=== PATIENT | female | born 1950 | race Caucasian/White ===

== ENCOUNTER → 2017-09-11 14:24 | Outpatient (CLI) | payer MEDICARE, OTHER, SELFPAY ==
--- NOTE | 2017-09-11 14:27 | DI.RAD.S_ITS ---
PROCEDURE: XR WRIST RT MIN 3V INDICATIONS: 66 year-old female with right wrist fracture. TECHNIQUE: 4 views of the wrist were acquired. COMPARISON: None. FINDINGS: Bony detail is obscured by overlying cast material. Bones: There is mildly displaced distal radial metaphyseal fracture, extending into the distal radioulnar joint. 3 percutaneous fixation pins are intact and in expected positions. Carpal bones appear normally aligned. Distal ulna appears intact. Scaphoid view: Scaphoid appears intact. Soft tissues: No suspicious soft tissue calcifications. IMPRESSION: Mildly displaced intra-articular distal radial metaphyseal fracture, with 3 percutaneous fixation pins in expected positions. Dictated by: Ridge Sena M.D. on 09/11/2017 at 15:02 Approved by: Ridge Sena M.D. on 09/11/2017 at 15:04
== END ==
PROVIDERS: Family Provider Orthopaedic Surgery; PCP Physician Assistant; Visit Provider Physician Assistant
DX: S52.571D Other intraarticular fracture of lower end of right radius, subsequent encounter for closed fracture with routine healing (principal)
CPT/HCPCS: 73110

== ENCOUNTER → 2019-08-30 08:42 | Outpatient (CLI) | payer MEDICARE, OTHER, SELFPAY ==
[2019-08-30 10:40] LABS: Alanine Aminotransferase 16 IU/L (<35); Albumin 4.6 g/dL (3.5-5.0); Albumin Globulin Ratio 1.5 (1.0-2.8); Alkaline Phosphatase 71 U/L (38-126); Aspartate Aminotransferase 25 IU/L (14-36); BUN Creatinine Ratio 31.8 (6-22); Bilirubin Total 1.6 mg/dL (0.2-1.3); Blood Urea Nitrogen 21 mg/dL (7-17); Calcium 9.7 mg/dL (8.4-10.2); Carbon Dioxide 27 mmol/L (22-32); Chloride 103 mmol/L (98-107); Cholesterol 208 mg/dL (140-199); Estimated Glomerular Filt Rate > 60.0 mL/min (>60); Globulin 3.1 g/dL (1.7-4.1); Glucose 112 mg/dL (80-110); HDL Cholesterol 74 mg/dL (40-60); HEMOLYSIS < 15 (0-50); LDL Cholesterol Calculated 115 mg/dL (<100); Potassium 4.3 mmol/L (3.4-5.1); Sodium 139 mmol/L (137-145); Total Protein 7.7 g/dL (6.3-8.2); Triglycerides 93 mg/dL (35-150)
== END ==
PROVIDERS: Family Provider Orthopaedic Surgery; PCP Nurse Practitioner Family
DX: Z13.228 Encounter for screening for other metabolic disorders (principal); E78.5 Hyperlipidemia, unspecified
CPT/HCPCS: 36415; 80053; 80061

== ENCOUNTER → 2019-10-10 10:29 | Outpatient (CLI) | payer MEDICARE, OTHER, SELFPAY ==
[2019-10-10 12:04] LABS: Albumin 4.3 g/dL (3.5-5.0); BUN Creatinine Ratio 22.2 (6-22); Blood Urea Nitrogen 16 mg/dL (7-17); Calcium 9.8 mg/dL (8.4-10.2); Carbon Dioxide 28 mmol/L (22-32); Chloride 104 mmol/L (98-107); Estimated Glomerular Filt Rate > 60.0 mL/min (>60); Glucose 126 mg/dL (80-110); HEMOLYSIS < 15 (0-50); Phosphorous 3.6 mg/dL (2.8-4.1); Potassium 4.5 mmol/L (3.4-5.1); Sodium 137 mmol/L (137-145)
== END ==
PROVIDERS: Family Provider Orthopaedic Surgery; PCP Nurse Practitioner Family
DX: R94.5 Abnormal results of liver function studies (principal)
CPT/HCPCS: 36415; 80069

== ENCOUNTER → 2020-05-14 16:55 | Outpatient (CLI) | payer MEDICARE, OTHER, SELFPAY ==
[2020-05-14 19:05] LABS: Appearance Urine UA CLOUDY; Bilirubin Urine UA NEGATIVE (NEGATIVE); Glucose Urine UA TRACE g/dL (Negative); Ketones Urine UA NEGATIVE (NEGATIVE); Leukocyte Esterase Urine UA 2+ (NEGATIVE); Nitrite Urine UA POSITIVE (Negative); Occult Blood Urine UA 3+ (Negative); Protein Urine UA 3+ (Negative)
[2020-05-14 19:08] LABS: Amorphous Sediment Urine 1+; Bacteria Urine Many (>30); Color Urine UA Dark Yellow; Culture Indicated Urine Specimen Cultured; Mucus Urine 2+ (Negative); RBC Urine 1-5/HPF (0-5/HPF); Squamous Epithelial Cell Urine 0-1 /HPF (0-5/HPF); WBC Urine >100/HPF (0-5/HPF)
== END ==
PROVIDERS: Family Provider Orthopaedic Surgery; PCP Nurse Practitioner Family; Visit Provider Registered Nurse
DX: M54.9 Dorsalgia, unspecified (principal); R30.0 Dysuria
CPT/HCPCS: 81001; 87077; 87086; 87186

== ENCOUNTER → 2021-02-04 07:44 | Outpatient (CLI) | payer MEDICARE, OTHER, SELFPAY ==
[2021-02-04 08:17] LABS: Hematocrit 38.1 % (36-46); Hemoglobin 13.2 g/dL (12.0-16.0); Mean Corpuscular HGB Conc 34.6 % (30-36); Mean Corpuscular Hemoglobin 30.7 PG (26-34); Mean Corpuscular Volume 88.9 fL (80-100); Platelet Count 255 X10^3/uL (150-400); Red Blood Cell Count 4.29 X10^6/uL (4.0-5.2); Red Cell Distribution Width 12.6 % (11.6-14.8); White Blood Cell Count 5.7 X10^3/uL (4.5-11.0)
[2021-02-04 08:53] LABS: Alanine Aminotransferase 16 IU/L (<35); Albumin 4.3 g/dL (3.5-5.0); Albumin Globulin Ratio 1.5 (1.0-2.8); Alkaline Phosphatase 51 U/L (38-126); Aspartate Aminotransferase 23 IU/L (14-36); BUN Creatinine Ratio 20.7 (6-22); Bilirubin Total 0.8 mg/dL (0.2-1.3); Blood Urea Nitrogen 18 mg/dL (7-17); Calcium 9.7 mg/dL (8.4-10.2); Carbon Dioxide 30 mmol/L (22-32); Chloride 106 mmol/L (98-107); Cholesterol 225 mg/dL (140-199); Estimated Glomerular Filt Rate > 60.0 mL/min (>60); Globulin 2.9 g/dL (1.7-4.1); Glucose 107 mg/dL (80-110); HDL Cholesterol 74 mg/dL (40-60); HEMOLYSIS < 15 (0-50); LDL Cholesterol Calculated 133 mg/dL (<100); Potassium 4.1 mmol/L (3.4-5.1); Sodium 143 mmol/L (137-145); Total Protein 7.2 g/dL (6.3-8.2); Triglycerides 90 mg/dL (35-150)
[2021-02-04 09:05] LABS: Free T4, Direct Thyroxine 1.12 ng/dL (0.78-2.19)
[2021-02-04 09:18] LABS: Thyroid Stimulating Hormone 0.101 uIU/mL (0.47-4.68)
== END ==
PROVIDERS: Family Provider Orthopaedic Surgery; PCP Nurse Practitioner Family; Referring Provider Nurse Practitioner Family; Visit Provider Nurse Practitioner Family
DX: E78.2 Mixed hyperlipidemia (principal); Z00.00 Encounter for general adult medical examination without abnormal findings; E89.0 Postprocedural hypothyroidism; Z13.6 Encounter for screening for cardiovascular disorders
CPT/HCPCS: 36415; 80053; 80061; 84439; 84443; 85027

== ENCOUNTER → 2022-06-27 16:15 | Outpatient (CLI) | payer MEDICARE, SELFPAY ==
--- NOTE | 2022-06-27 16:18 | DI.MRI.S_ITS ---
BREAST MRI OF BOTH BREASTS: 06/27/2022 CLINICAL: New dx adenocarcinoma breast. TECHNIQUE: The patient was placed prone in a dedicated breast imaging coil. Precontrast axial STIR and 3D FLASH without fat saturation sequences were obtained. Both before and after bolus injection of contrast, sequential 1-minute axial 3D FLASH with fat saturation sequences for 3 time points, with subtraction images and maximum intensity projections (MIP's) generated. Delayed sagittal FLASH images with fat saturation were also obtained. 20 cc ProHance IV contrast was administered. Computer-aided detection, including computer algorithm analysis of MRI image data for lesion detection and characterization, pharmacokinetic analysis, with further physician review for interpretation, was performed. COMPARISON: [facility], MG, MG SCREENING BILATERAL DIGITAL BREAST TOMOSYNTHESIS, 05/04/2022, 14:31. [facility], MG, MG ADDITIONAL VIEWS DIGITAL BREAST TOMOSYNTHESIS LEFT, 05/27/2022, 14:29. [facility], US, US BREAST LIMITED LEFT, 05/27/2022, 14:51. [facility], MG, MG DIGITAL BREAST TOMOSYNTHESIS BREAST BIOPSY LEFT, 06/16/2022, 13:09. FINDINGS: Image quality: Excellent. There is mild background parenchymal enhancement. Right breast: There is a small skin tag in the upper outer right breast middle depth. Small amount of tubular branching T1 hyperintense material in the retroareolar position consistent with inspissated ductal debris. A 0.8 cm cyst is present in the 09:00 o'clock right breast middle depth. No suspicious enhancement or mass. Left breast: There is small round blooming artifact from a remote biopsy marker in the 05:00 o'clock breast middle depth. There is round blooming artifact from recent biopsy at a posterior depth at the 11 to 12 o'clock position. A 0.6 x 0.5 cm enhancing mass is present in the left to 12:00 o'clock position posterior depth. There is an adjacent peripherally enhancing tubular fluid collection consistent with a biopsy tract (see series 19, image 64). Kinetic analysis on the small mass demonstrates rapid initial enhancement and predominantly persistent delayed kinetics with 12% washout. Miscellaneous: There are a few nonenlarged left low axillary lymph nodes, all of which a fatty hilum is demonstrated. There is no bulky adenopathy on either side. No internal mammary chain adenopathy. Mild enhancing right middle lobe pulmonary parenchymal consolidation may correlate with atelectasis or airspace disease. The visible portions of the chest wall and heart are normal. A few cysts are noted in the liver. IMPRESSION: KNOWN BIOPSY PROVEN MALIGNANCY 1. 0.6 cm enhancing mass in the posterior left breast 12 o'clock position is biopsy-proven malignant. 2. There is adjacent enhancement of the biopsy tract. 3. No suspicious adenopathy or right breast abnormality. BIRADS six, known malignancy COMMENT: The imaging literature indicates that a negative contrast breast MRI examination has a high sensitivity and a moderate specificity for detecting and excluding invasive carcinomas to a detection threshold of 3-5 mm; nonetheless, appropriate clinical and mammographic follow-up are recommended. MRI is not sensitive for detecting DCIS (ductal carcinoma in situ) and may not detect large invasive neoplasms that show only minimal enhancement such as mucinous carcinoma. If there are suspicious calcifications or clinically worrisome palpable masses, then biopsy should still be considered. Invasive neoplasms can be hidden by co-existent and benign enhancement caused by mastitis, hormone therapy effects, radiation therapy, , and recent biopsy or surgery. False positive examinations can occur in a number of circumstances, including breasts that have recently been subject to invasive procedures and those that contain atypical ductal hyperplasia, hormonally stimulated glandular tissue, fat necrosis, or radial scars. This exam was interpreted at Station ID: [id number]. Electronically Signed By: Nel mckee/:06/28/2022 10:57:03 ACR BI-RADS Category 6: Known biopsy proven malignancy [id number]
== END ==
PROVIDERS: Family Provider Orthopaedic Surgery; PCP Nurse Practitioner; Referring Provider Nurse Practitioner; Visit Provider Nurse Practitioner
DX: C50.812 Malignant neoplasm of overlapping sites of left female breast (principal); N60.01 Solitary cyst of right breast
CPT/HCPCS: 77049; A9579

== ENCOUNTER → 2022-07-27 07:55 | Outpatient (CLI) | payer MEDICARE, SELFPAY ==
--- NOTE | 2022-07-27 | DI.MG.S_ITS ---
SPECIMEN: 07/27/2022 CLINICAL: Left specimen. Correlation is made to exams dated: 07/27/2022 localization, 06/27/2022 breast MRI - [facility], 06/16/2022 stereotactic biopsy, 05/27/2022 ultrasound, and 05/27/2022 mammogram - [facility]. The specimen contains the clip and the wire with the hook end. IMPRESSION: SPECIMEN The specimen contains the clip and the wire with the hook end. This exam was interpreted at Station ID: [id number]. Mau James M.D. lc/:07/27/2022 14:45:53
--- NOTE | 2022-07-27 07:57 | DI.NM.S_ITS ---
PROCEDURE: NM SENTINEL NODE INJECT ONLY RADIOPHARMACEUTICAL: 0.5-1.0 mCi Millipore filtered Tc-99m sulfur colloid. INDICATIONS: Left breast ca COMPARISON: None. PROCEDURE: The area around the nipple was prepped and draped in a sterile fashion. Tc-99m sulfur colloid was injected intra-dermally around the outer edge of the areola in the left breast. No image was obtained. IMPRESSION: Administration of radiotracer into the left breast periareolar region for intra-operative sentinel lymph node localization. Dictated by: Odilia Casiano M.D. on 07/27/2022 at 20:55 Approved by: Odilia Casiano M.D. on 07/27/2022 at 20:56
--- NOTE | 2022-07-27 09:54 | DI.MG.S_ITS ---
Patient Name: ARIANE JAVED date: 1950 Sex: F Attending Physician: Cristal Indications: Date: 07/28/2022 09:36 At the request of: GIRMA GALVEZ Procedure: MM needle loc LT MAMMOGRAPHY GUIDED NEEDLE LOCALIZATION LEFT BREAST WITH POST MAMMOGRAPHIC IMAGING AND RADIOGRAPHIC SPECIMEN IMAGIN07/27/2022 CLINICAL: Left needle loc. Correlation is made to exams dated: 06/27/2022 breast MRI - [facility], 06/16/2022 stereotactic biopsy, 05/27/2022 ultrasound, 05/27/2022 mammogram, 05/04/2022 mammogram, and 12/09/2020 mammogram - [facility]. A needle localization using mammography guidance was performed for the 0.6 cm mass located in the left breast at 11 o'clock posterior depth. The skin was prepped in the usual manner. Local anesthetic was administered to the access site. The localization was approached from the caudocranial aspect. A needle was inserted into the targeted area under mammography guidance. Post placement mammographic imaging demonstrates the tip 1.2cm posterior from the geometric center of the targeted area. IMPRESSION: NEEDLE LOCALIZATION Needle localization for the 0.6 cm mass in the left breast at 11 o'clock posterior depth was successful. The imaged specimen includes a biopsy clip. Waiting for pathology results. A final report will be issued when these become available. This exam was interpreted at Station ID: [id number]. Delta cobos/eliud:07/28/2022 09:36:57
== END ==
PROVIDERS: Family Provider Orthopaedic Surgery; PCP Nurse Practitioner; Referring Provider Surgery; Visit Provider Surgery
DX: C50.912 Malignant neoplasm of unspecified site of left female breast
CPT/HCPCS: 19281; 38792; 76098; A9541; G0279; C1819

== ENCOUNTER 2022-07-27 09:24 | Day surgery (SDC) | payer MEDICARE, SELFPAY ==
[2022-07-25 08:03] VITALS: BMI 24.3
[2022-07-27] VITALS (19 sets, daily range): BP systolic 120–151; BP diastolic 66–91; PULSE 59–89; RESP 11–20; TEMP 36.4–36.8; O2SAT 67–99; BMI 23.9
--- NOTE | 2022-07-27 | PATH_ITS ---
[facility] Accession Number: [id number] No. of containers..02 Tissue . 01 Material submitted: . PART A: breast - LEFT BREAST LESION (LONG LATERAL SHOUR SUPERIOR) PART B: lymph node - LEFT SENTINEL LYMPH NODES . 01 Diagnosis: A. Left Breast Lesion, Excision: Invasive (ductal) carcinoma, grade 2 of 3 (Du combined histologic grade, total score 6/9), with the following specific features: 1. Tumor size (invasive component): 6 mm, by microscopic measurement. 2. Nuclear pleomorphism: Intermediate (2/3). 3. Mitotic rate: Low. (1/3) 4. Tubular differentiation: Little or none. (3/3). 5. Ductal carcinoma in situ: small focus suspected. 6. Calcifications: Present in association with benign breast tissue and in stroma adjacent to invasive carcinoma. 7. Lymphatic invasion: Not identified. 8. Resection margins: - For invasive carcinoma: Negative. - 1.2 mm from anterior margin (block A12), and more than 2 mm from the remaining margins. - For possible DCIS: Negative (more than 2 mm from all margins). 9. Prognostic markers (performed on prior biopsy, outside case #[id number], collection date 06/16/2022, [facility]), with the following reported findings: - Estrogen receptor: Positive. - Progesterone receptor status: Positive. - HER-2 status: Negative for protein overexpression by immunohistochemistry (1+). 10. Regional lymph node status (see part B below): Three sentinel lymph nodes examined, negative for malignancy (0/3). 11. Additional findings: - Biopsy site changes and associated extensive fibrosis seen. - Few fragments of skeletal muscle seen, uninvolved by tumor. - Skin and nipple are not present for evaluation. 12. Pathologic stage: pT1b pN0(sn). . B. Left [place] Lymph Nodes, Dissection: 3 Lymph nodes, negative for malignancy (0/3). . COMMENT: The size of the carcinoma is estimated microscopically based on involvement of 2 slices (8 and 9) each measuring 3 mm in thickness. [facility] 08/04/2022 1856 Local . 01 Comment: Dr. Hutson reviewed block B1 and concurs with the interpretation. . 01 Electronically signed: Haresh King MD, Pathologist NPI- [id number] . 01 Gross description: . A. Received: In formalin in a [employer] transportation and compression container, labeled with the patient's name, , and left breast lesion. Specimen: A left partial mastectomy specimen. Weight: 33 grams. Measurement: 6.9 cm from superior to inferior, 1.5 cm from medial to lateral, and 6.0 cm from anterior to posterior. Skin Ellipse: Absent. Wire: Present, penetrating at the anterior superior side and exiting at the anterior inferior side. Margins: Oriented by the surgeon with a short suture designating superior and a long suture designating lateral, per the requisition. The specimen is inked as follows: Anterior yellow, posterior black, medial blue, lateral green, superior orange, and inferior red. Sliced: From superior to inferior into fourteen 3 mm slices. Lesion: Description: A firm, mendiola, ill-defined lesion. Size: 1.8 x 0.8 x 0.3 cm. Slices Involved: Slices 4 through 10. Biopsy Site: A coil biopsy clip is identified within slice 11. Distance to Margins: Grossly approaches the green margin, 0.3 cm from the blue margin, and greater than 0.5 cm from all remaining margins. Other: The remaining cut surfaces are yellow to white fibroadipose tissue with fibrous tissue occupying less than 10% of the cut surface with no additional lesions identified. Fixation time: The specimen was removed on 07/27/2022, time not provided; cold ischemic time cannot be calculated; and total fixation time is less than 72 hours. Family Engagement Specialist sections are submitted as follows: A1: Rep slice 1, orange margin perpendicular A2-A3: Entire composite slice 3, no lesion. A4: Rep slice 4 with lesion to nearest green margin and including yellow and blue margins. A5: Rep slice 5. A6: Rep slice 7. A7-A8: Entire composite slice 8. A9-A10: Entire composite slice 9. A11: Rep slice 10. A12: Rep slice 11 to include biopsy site. A13-A14: Entire composite slice 12, no lesion. A15: Rep slice 14, red margin perpendicular. . B. Received in formalin labeled with the patient's name, and left sentinel lymph nodes, and consists of a yellow lobulated soft tissue fragment measuring 3.0 x 2.2 x 1.3 cm. Palpation reveals three mendiola lymph node candidates ranging from 0.5 to 1.3 cm in greatest dimension. The lymph node candidates are submitted as follows: B1: Single serially sectioned lymph node candidate. B2: Single serially sectioned lymph node candidate. B3: Single intact lymph node candidate. . The specimen was removed on 07/27/2022, time not provided; cold ischemic time cannot be calculated; and total fixation time is less than 72 hours. ([id number]) /MRV 07/29/2022 1933 Local . 01 Microscopic: . p63 and smooth muscle myosin immunostains* are performed on blocks A7 and A12 in order to evaluate for DCIS and the atypical focus close to the anterior margin in A12, respectively. In A7, retention of markers is not seen, hence in this block DCIS is not present. In A12, there is loss of both markers, in support of invasive carcinoma close to anterior margin. Deeper levels are examined and this focus disappears. . * This test was developed and its performance characteristics determined by [facility]. It has not been cleared or approved by the U.S. Food and Drug Administration. The FDA has determined that such clearance or approval is not necessary. This test is used for clinical purposes. It should not be regarded as investigational or for research. . 01 Pathologist provided ICD-10: C50.112 . 01 CPT . 294462, 347857, X94964, G19154 Specimen Comment: A courtesy copy of this report has been sent to [phone] Performed at: 01 [facility] [address] [place] [address], [place], [place] [id number] MD Herminio Fitzgerald MD Phone: [phone]
[2022-07-27] MEDS: LACTATED RINGERS 1,000 ML 100 ML IV (11:30)
--- NOTE | 2022-07-27 12:45 | PM.PREOP ---
Pre-operative Note Interval Note History & Physical reviewed/Exam performed by Physician: Yes Changes to H&P: No
[2022-07-27] MEDS: CEFAZOLIN 2 GM/100 ML PREMIX 100 ML IV (13:21)
[2022-07-27] MEDS: METHYLENE BLUE 50 MG/10 ML VIAL INJ (13:45)
[2022-07-27] MEDS: BUPIVACAINE 0.25% (PF) VIAL 30 ML INJ (14:48)
[2022-07-27] MEDS: hydrOXYzine pamoate 25 MG CAPSULE PO (15:12)
--- NOTE | 2022-07-27 15:16 | PM.OP.1 ---
Operative Date/Time/Diagnoses Date of procedure: 07/27/22 Time of procedure: 15:16 Pre-op diagnosis: Left breast cancer Post-op diagnosis: same Procedure & Clinicians Procedure: Left lumpectomy with sentinel lymph node biopsy Same procedure as scheduled: Yes Indications: 71-year-old woman with a <1 cm left breast ductal carcinoma HR+ HER2- here for needle-guided lumpectomy with sentinel lymph node biopsy Surgeon: Tato Bee Anesthesia Type: General Operative Notes Findings: wire and clip with the specimen. 2+ sentinel lymph nodes. Specimen(s): other (Left lumpectomy, left sentinel lymph nodes) Estimated Blood Loss (mL): 30 Procedure in detail: The patient underwent needle localized prior to the operation. They were brought to the operating room and placed supine on the table. Bilateral lower extremity compression devices were applied. They were intubated with an LMA. 1 ml of methlyene blue mixed w 4 ml saline was injected into the dermal space around the areola and massaged into the tissue for 5 minutes. They were prepped and draped in sterile fashion. Time-out was performed. A curvilinear incision on the superior aspect of the left breast was made and subcutaneous tissues were divided. The localizing wire was identified and then brought back within the incision. The end of the wire was within a posterior depth breast mass. The mass was excised with the wire and the clip. Specimen was marked short stitch superior long stitch lateral. Imaging demonstrated that the specimen contained the wire and the associated clip. A metalic clip was placed on the posterior wall of the cavity which is essentially the chest wall. Subcutaneous tissues were reapproximated with 3 0 Vicryl sutures skin closed with Monocryl followed by application of Dermabond. The counts were correct. They emerged from anesthesia and were transfered to recovery in stable condition. An incision was made in the left axilla 2 cm below the hair bearing region. Dissection was carried down through the subcutaneous tissue towards the chest wall guided by the Neoprobe. A small cluster of lymph nodes were identified by their activity, but they were not blue in appearance. The nodes were removed the tissue was ligated with hemoclips. The background count following removal of the node was minimal there were no other blue appearing nodes or lymphadenopathy. Hemostasis was achieved. The subcutaneous tissue was closed with vicryl the skin with 4-o monocryl followed by dermabond. Complications: none Post-operative Condition: stable Disposition: same day surgery
[2022-07-27] MEDS: HYDROMORPHONE 2 MG INJ IV ×7 (15:18→15:52)
[2022-07-27] MEDS: ACETAMINOPHEN 325 MG TABLET 650 MG PO (15:30)
[2022-07-27] MEDS: OXYCODONE IR 5 MG TABLET PO ×2 (15:30→15:55)
--- NOTE | 2022-07-27 15:32 | SUR.PREOP ---
Have administered 1.5mg IV Dilaudid, given 5mg PO Oxycodone, 650mg Tylenol for pain that feels it is stabbing me. Pt is crying. Calm but in much pain. Ice pack in place. Will continue to treat pain and monitor vital signs
--- NOTE | 2022-07-27 15:55 | SUR.PHASEI ---
Pt states her pain is not better at all. Rating pain as 8/10. HR 66. Appears calm. Will adminsiter the remaining .5mg IV Dilaudid and reassess
--- NOTE | 2022-07-27 16:38 | SUR.PHASEII ---
Pt in Phase II, sats dropping to 74% when falling asleep. ([id number]). Sats rturn to 98% when verbally stimulated to take deep breaths.
--- NOTE | 2022-07-27 17:26 | SUR.PHASEII ---
Report given to Ragini.
== END 2022-07-27 19:35 | disposition home or self-care (01) ==
PROVIDERS: Family Provider Orthopaedic Surgery; PCP Nurse Practitioner; Referring Provider Surgery; Visit Provider Surgery
PROC: (CPT 19301; principal; 2022-07-27 12:15)
DX: C50.112 Malignant neoplasm of central portion of left female breast (principal); Z17.0 Estrogen receptor positive status [ER+]
CPT/HCPCS: 38500; 19125; 19281; 38792; 76098; A9541; G0279; C1819; J0690; J1100; J1170; J2250; J2405; J2704; J3010; J3490; Q9968

== ENCOUNTER 2024-04-11 12:50 | Day surgery (SDC) | payer MEDICARE, SELFPAY ==
[2024-04-11 13:34] VITALS: BMI 22.7
[2024-04-11 13:44] VITALS: BP 134/69; PULSE 67; RESP 18; TEMP 36.2; O2SAT 100
--- NOTE | 2024-04-11 13:47 | P.HP_ITS ---
History of Present Illness History of Present Illness Date Patient Seen: 04/11/24 Time Patient Seen: 13:47 Chief complaint: Colonoscopy Narrative: Tyra is a 73-year-old woman who is here for her first colonoscopy. She did have a sigmoidoscopy many years ago. No known family history of colon cancer. She has a personal history of breast cancer. [facility] Medical History Adenocarcinoma, breast Cyst Dupuytren's contracture of both hands Elevated bilirubin Elevated fasting blood sugar Hypothyroid Medicare annual wellness visit, subsequent (10/2020) Mixed hyperlipidemia Osteopenia (2015) Psoriasis Psoriatic arthritis Thyroid cancer Surgical History History of surgery on wrist (1977) History of thyroidectomy History of tonsillectomy Social History household members: spouse Smoking Status: Former smoker alcohol intake: current Meds Home Medications and Allergies Home Medications Medication Instructions Recorded Confirmed Type levothyroxine 175 mcg tablet 175 mcg PO DAILY 08/22/19 12/25/23 History calcium 500 mg tablet 500 mg DAILY 08/25/22 12/25/23 History collagen,hydrolysate 500 mg-biotin 1 cap PO DAILY 08/25/22 12/25/23 History 800 mcg-ascorbic acid 50 mg capsule (Collagen 1500 Plus C) letrozole 2.5 mg tablet 2.5 mg PO DAILY 12/25/23 12/25/23 History sodium,potassium,mag sulfates 17.5 See Rx Instructions PO .COMPLEX 03/07/24 Rx gram-3.13 gram-1.6 gram oral soln #354 mL (Suprep Bowel Prep Kit) Allergies Allergy/AdvReac Type Severity Reaction Status Date / Time No Known Drug Allergies Allergy Verified 12/25/23 11:18 Exam Const General: No acute distress Resp Effort & Inspection: normal respiratory effort Assessment & Plan Assessment and plan (1) Colon cancer screening: Status: Acute Plan Colonoscopy Time-Based Coding :: [TOTAL MINUTES] spent with patient and on the chart (including review of chart, obtaining history, exam, reviewing outside data, placing orders, documenting exam and treatment plan, and counseling patient) on [DATE]. [employer]EE Sales Associate Key Holder Document charge(s): No
[2024-04-11] MEDS: SODIUM CHLORIDE 0.9% 1,000 ML 84 ML IV (13:52)
--- NOTE | 2024-04-11 15:02 | P.OP.COLON_ITS ---
Operative Date/Time/Diagnoses Date of procedure: 04/11/24 Time of procedure: 15:03 Pre-op diagnosis: Colon cancer screening Post-op diagnosis: same Procedure & Clinicians Study performed: Colonoscopy Same procedure as scheduled: Yes Surgeon: Lauri Oliver Procedure Notes Procedure in detail: Surgeon: Lauri Oliver MD Anesthesia: Calista Major MD Procedure: The patient was brought to the endoscopy suite, placed in left lateral decubitus position. The patient was connected to monitoring devices. A time-out was performed. Sedation was administered. Once the patient was adequately sedated, a digital rectal exam was performed and was normal. The scope was then inserted and advanced to the cecum where the appendiceal orifice was identified and photographed. The scope was then slowly withdrawn over greater than 6 minutes. The mucosa was thoroughly inspected. No polyps or oth er abnormalities were identified. The scope was retroflexed in the rectum. The scope was straightened and removed. The patient was awakened and brought to recovery. Scope withdrawal time: 7 minutes Sedation time: 22 minutes EBL: 0 Findings: Normal colon Post-procedure Disposition: PACU
[2024-04-11 15:05] VITALS: BP 107/53; PULSE 69; RESP 16; TEMP 36.4; O2SAT 98
[2024-04-11 15:10] VITALS: BP 113/52; PULSE 64; RESP 16; O2SAT 98
[2024-04-11 15:15] VITALS: BP 120/70; PULSE 67; RESP 16; O2SAT 98
== END 2024-04-11 15:24 | disposition home or self-care (01) ==
PROVIDERS: Family Provider Orthopaedic Surgery; PCP Student in an Organized Health Care Education/Training Program; Referring Provider Surgery; Visit Provider Surgery
PROC: 0DJD8ZZ Inspection of Lower Intestinal Tract, Via Natural or Artificial Opening Endoscopic (ICD-10-PCS; CPT 45378; principal; 2024-04-11 14:00)
DX: Z12.11 Encounter for screening for malignant neoplasm of colon (principal); E03.9 Hypothyroidism, unspecified; Z85.3 Personal history of malignant neoplasm of breast; E78.2 Mixed hyperlipidemia; Z85.850 Personal history of malignant neoplasm of thyroid; Z87.891 Personal history of nicotine dependence
CPT/HCPCS: G0121; J2704